=== PATIENT | female | born 1995 | race Caucasian/White ===

== ENCOUNTER 2016-11-16 08:12 | Inpatient (IN) | payer BC ==
[~2016-11-16] VITALS: Ht 157.5 cm; Wt 111.7 kg
[2016-11-16] MEDS ORDERED: FER325 PO (08:49)
[2016-11-16] MEDS ORDERED: PRENAT PO (08:49)
[2016-11-16 08:50] VITALS: BP 116/68; PULSE 80; RESP 18; Ht 157.5 cm; Wt 111.7 kg
--- NOTE | 2016-11-16 09:53 | RADRPT ---
PROCEDURE: US OB biophysical profile. CLINICAL INDICATION: decreased movements, contractions TECHNIQUE: Multiple sonographic images of the pelvis were obtained. The images were reviewed on a PACS workstation. COMPARISON: No prior studies are available for comparison. FINDINGS: There is a single viable intrauterine gestation. Cardiac activity is present with 127 beats per min [place]. There is a vertex presentation. The placenta is anterior. There is no evidence of placental abruption. There is a decreased amount of amniotic fluid with an DEBRA = 4.7 cm. Biophysical profile: movement 2/2 tone 2/2. breathing 2/2 DEBRA 0/2 Total 09/11 RPTAT: AA . IMPRESSION: Abnormal biophysical profile. Oligohydramnios. . .Patrick Lawrence MD, Date Time Electronically viewed and signed by .Patrick Lawrence MD, on 11/16/2016 09:53 .S/
--- NOTE | 2016-11-16 10:32 | TRIAGE ---
OB Triage Datetime Report Generated by CPN: 11/16/2016 10:32 Datetime: 11/16/2016 09:48 Vaginal Exam Dilatation (cms): 2.5 Effacement (%): 60 Station: -3 Exam By: pankaj Vaginal Bleeding: Normal Show Nitrazine: Negative Cervix, Consistency: Soft Cervix, Position: Posterior Datetime: 11/16/2016 08:47 Assessment Type: Triage Maternal Assessment Level of Consciousness: Fully Conscious DTR's/Clonus: DTRs 2+; No Clonus Headache: Denies Blurred Vision: No Respiratory Effort: Unlabored; Regular Rhythm; Equal Expansion Breath Sounds, Left: Clear and Equal Breath Sounds, Right: Clear and Equal Nausea/Vomiting: Denies RUQ Epigastric Pain: Denies Lower Extremities Edema: None Degree: None Upper Extremities Edema: None Degree: None Facial Edema: None Fall Risk Assessment History of Falling: (0) No Secondary Diagnosis: (0) No Ambulatory Aid: (0) Bedrest/Nurse Assist IV Therapy: (0) No Gait: (0) Normal/Bedrest/Immobile Mental Status: (0) Oriented to Own Ability Fall Score: 0 Fall Risk Score Definition: No Risk: No action required Datetime: 11/16/2016 08:42 Time of Arrival: 11/16/2016 08:07 EGA: 40.0 Arrived By: Ambulatory Arrived From: Home Chief Complaint: C/O POSSIBLE SROM Movement: Present Contractions: Irregular Time Contractions Began: 11/16/2016 07:30 Rupture of Membranes: Unsure Vaginal Bleeding: None Vaginal Discharge: Present Recent Sexual Intercouse: Denies Abdominal Trauma: Not Applicable Patient Complaints: Contractions; Cramping; Back Pain Time Provider Notified: 11/16/2016 09:00 Provider Notified: [email or web address] Datetime: 11/16/2016 08:41 Labor Evaluation Monitor Mode: External Heart Rate Monitor Mode: External US
[2016-11-16] MEDS ORDERED: LACTATED RINGER'S 1,000 ML IV PRN (13:22)
[2016-11-16] MEDS ORDERED: OXYTOCIN 30 UNITS/LR 500 ML IV PRN (13:30)
[2016-11-16] MEDS ORDERED: METHYLERGONOVINE 0.2 MG INJ IM PRN (13:30)
[2016-11-16] MEDS ORDERED: IBUPROFEN 600 MG TAB PO PRN (13:30)
[2016-11-16] MEDS ORDERED: AMPICILLIN 2 GM/NS (PMX) 100 ML IV ONE (13:30)
[2016-11-16] MEDS ORDERED: CARBOPROST 250 MCG INJ IM PRN (13:30)
[2016-11-16] MEDS ORDERED: LIDOCAINE 1% (MPF) 30 ML INJ INJ PRN (13:30)
[2016-11-16] MEDS ORDERED: OXYTOCIN 30 UNITS/LR 500 ML IV SCH ×3 (13:30)
[2016-11-16] MEDS ORDERED: MISOPROSTOL 200 MCG TAB PR PRN (13:30)
[2016-11-16] MEDS: LACTATED RINGER'S 1,000 ML IV SCH ×2 (13:39→22:05)
[2016-11-16 14:18] LABS: BASOPHILS % 0.4 % (0.0-2.0); EOSINOPHILS # 0.1 10^3/ul (0.0-0.5); EOSINOPHILS % 0.5 % (0.0-7.0); HEMATOCRIT 36.1 % (37.0-47.0); HEMOGLOBIN 11.7 g/dl (12.0-16.0); LYMPHOCYTES # 1.4 10^3/ul (0.8-2.9); LYMPHOCYTES % 12.6 % (15.0-51.0); MEAN CORPUSCULAR HEMOGLOBIN 26.7 pg (29.0-33.0); MEAN CORPUSCULAR HGB CONC 32.4 g/dl (32.0-37.0); MEAN CORPUSCULAR VOLUME 82.4 fl (82.0-101.0); MEAN PLATELET VOLUME 12.4 fl (7.4-10.4); MONOCYTE # 0.6 10^3/ul (0.3-0.9); MONOCYTES % 5.9 % (0.0-11.0); NEUTROPHIL # 8.6 10^3/ul (1.6-7.5); PLATELET COUNT 143 10^3/UL (140-415); RED BLOOD COUNT 4.38 10^6/ul (4.20-5.40); WHITE BLOOD COUNT 10.7 10^3/ul (4.8-10.8)
[2016-11-16 14:32] LABS: INR 0.93; PROTIME 12.5 Sec (12.2-14.2)
[2016-11-16 14:33] LABS: PARTIAL THROMBOPLASTIN TIME 25.8 Sec (25.0-35.0)
--- NOTE | 2016-11-16 16:04 | HP ---
Date/Time of Note Date/Time of Note DATE: 11/16/16 TIME: 15:56 OB - History Hx of Present Free Text/Dictation 21 years old female EDC November 16, 2016 admitted to the hospital reporting premature rupture of membranes at 730 this morning ,mild contraction. This patient has been under the care of the [facility] and her is not complicated with gestational diabetes - induced hypertension Estimated Due Date: Nov 16, 2016 : 1 Para: 0 Care: Good Care Ultrasounds: Normal mid trimester US Obstetrical Complications: None Medical Complications: None Past Family/Social History * Past Medical, Surgical, Family and Obstetric Histories reviewed from chart. Rubella: immune RPR/VDRL: Negative GBS Status: Negative HBsAG: Negative OB Admission Exam Vital Signs Vital Signs Vital Signs Date Time Temp Pulse Resp B/P Pulse Ox O2 Delivery O2 Flow Rate FiO2 11/16/16 08:50 98.5 80 18 116/68 98 Room Air Physical Exam HEENT: WNL Heart: Rhythm Normal Lungs: Clear, Equal Abdomen: WNL Extremities: Normal Reflexes: Normal Cervical Dilatation: 3cm Effacement: Other (60% effacement vertex at -3 station) Station: -3 Membranes: Ruptured Amniotic Fluid: Clear Heart Rate: 130's Accelerations: Accelerations Present Decelerations: No Decelerations Varibility: Moderate Contractions on Admission: >10 Minutes Apart Intensity: Mild Last 72 hours Lab Results CBC & BMP 11/16/16 13:38 OB Assessment/Plan Reason for admission: other (Labor augmentation with Pitocin IV infusion, required coverage with antibiotic started on ampicillin 2 g every 6 hours) Plan: Other (Labor augmentation) EULA SOTELO MD Nov 16, 2016 16:04
[2016-11-16 16:21] LABS: CANNABINOIDS Negative (NEGATIVE)
[2016-11-16 16:22] LABS: BARBITURATES Negative (NEGATIVE); BENZODIAZEPINES Negative (NEGATIVE); COCAINE Negative (NEGATIVE); OPIATES Negative (NEGATIVE)
[2016-11-16] MEDS: AMPICILLIN 1 GM/NS (PMX) 50 ML IV SCH ×2 (17:51→22:05)
[2016-11-16] MEDS: BUTORPHANOL 2 MG INJ IV PRN ×2 (20:06→23:50)
[2016-11-17] MEDS: AMPICILLIN 1 GM/NS (PMX) 50 ML IV SCH ×6 (02:19→22:07)
[2016-11-17] MEDS ORDERED: FENTAnyl 2MCG/ML-ROPIV 0.2% 100 ML ONE (06:04)
[2016-11-17] MEDS: LACTATED RINGER'S 1,000 ML IV SCH ×3 (06:14→23:57)
[2016-11-17] MEDS ORDERED: FENTAnyl 2MCG/ML-ROPIV 0.2% 100 ML BAG EPI SCH (06:30)
[2016-11-17] MEDS ORDERED: NALOXONE (0.4 MG/ML) INJ IV PRN (06:30)
--- NOTE | 2016-11-17 11:26 | RADRPT ---
PROCEDURE: US OB. CLINICAL INDICATION: Size and dates TECHNIQUE: Multiple sonographic images of the pelvis were obtained. Transabdominal imaging only w as performed. The images were reviewed on a PACS workstation. COMPARISON: No prior studies are available for comparison. FINDINGS: There is a single live intrauterine gestation. Cardiac activity is present with 137 beats per minut e. position is cephalic. Measurements were made in order to determine age. The results are as follows: BPD = 8.34 cm HC = 31.17 cm AC = 31.59 cm FL = 6.43 cm. Estimated gestational age of approximately 34 weeks 2 days. The estimated date of delivery is 12/27/2016. The EFW = 2478 g, less than 3rd %ile. The placenta is anterior. There is no evidence for an abruption or placenta previa. There are no adnexal masses. IMPRESSION: 1. Single live intrauterine gestation of approximately 34 weeks 2 days, by ultrasound criteria. 2. The estimated date of delivery is 12/27/2016. 3. The estimated weight is 2478 g, less than 3rd %ile. RPTAT: HH .Shivani Mcclendon MD, Date Time Electronically viewed and signed by .Shivani Mcclendon MD, on 11/17/2016 11:26 .G/
[2016-11-17] MEDS ORDERED: MINERAL OIL LIGHT 10 ML VIAL TOP ONE (15:00)
--- NOTE | 2016-11-17 17:00 | QN ---
Documentation Comment Repeat examination at 1655 Cervix 9 cm dilated vertex with moderate Size caput at -1 -2 station heart rate category 1 contraction 3-5 minutes EULA SOTELO MD Nov 17, 2016 17:00
[2016-11-18] VITALS (11 sets, daily range): BP systolic 107–137; BP diastolic 66–82; PULSE 78–103; RESP 18–20
[2016-11-18] MEDS: AMPICILLIN 1 GM/NS (PMX) 50 ML IV SCH (02:00)
[2016-11-18] MEDS ORDERED: FENTAnyl 50 MCG/ML VIAL ONE (02:06)
[2016-11-18] MEDS ORDERED: CEFAZOLIN 1 GM INJ ONE (02:20)
[2016-11-18] MEDS ORDERED: SODIUM BICARBONATE (IV ADD) 50 ML ONE (02:20)
[2016-11-18] MEDS ORDERED: ONDANSETRON 4 MG INJ ONE (02:21)
[2016-11-18] MEDS ORDERED: LIDOCAINE 2%/EPI 30 ML INJ ONE (02:22)
[2016-11-18] MEDS ORDERED: morphine SULFATE/PF (10 MG/10 ML) INJ ONE (02:22)
[2016-11-18] MEDS ORDERED: NALOXONE (0.4 MG/ML) INJ IV PRN (03:00)
[2016-11-18] MEDS ORDERED: DIPHENHYDRAMINE 50 MG INJ IV PRN (03:00)
[2016-11-18] MEDS ORDERED: HYDROmorphONE 1 MG/ML SYG IV PRN ×2 (03:00)
[2016-11-18] MEDS ORDERED: ZOLPIDEM 5 MG TAB PO PRN (03:00)
[2016-11-18] MEDS ORDERED: ONDANSETRON 4 MG INJ IV PRN (03:00)
[2016-11-18] MEDS: KETOROLAC 30 MG INJ IV PRN ×4 (05:23→23:58)
--- NOTE | 2016-11-18 05:36 | OPR ---
Operative Report Planned Procedure Free Text/Dictation 21 y/o G1 with SIUP at 40 2/7 weeks with arrest of descent Procedure date Nov 18, 2016 Procedure(s) primary C/S Performed by: KALEIGH YUEN Assisting provider: SUSANNE CLINTON MD Anesthesiologist: PATRICK LUCERO Pre-procedure diagnosis 21 y/o G1 with SIUP at 40 2/7 weeks with arrest of descent Anesthesia Type: epidural Procedure Description Under satisfactory epidural anesthesia, the patient was prepped and draped and placed in a supine position, tilted to the left. Pfannenstiel incision was made , carried through the subcutaneous tissue. Bleeders brought under control with electrocautery. Fascia incised to the length of the incision. Rectus muscles from the fascia, divided midline. Peritoneum exposed, entered through a transverse incision. Exploration of abdomen revealed gravid uterus. Bladder flap was developed. Transverse incision was made in the lower segment of the uterus. Amniotic sac was ruptured, clear. Nasal oropharyngeal suction was performed. The baby was handed to the team for immediate attention. The placenta was delivered manually intact. Uterine cavity was cleaned with wet sponge and drainage established. Uterus closed in 2 layers using [0-monocryl] in continuous fashion. Peritoneal cavity irrigated with warm saline. Sponge, needle and instrument count reported to be correct. Abdominal peritoneum closed with [2-0 vicryl] continuously. Rectus muscle approximated with [3-0 vicryl]. Fascia closed with [0-vicryl], Subcutaneous approximated with 3-0 vicryl and skin closed with 4-0 monocryl. Estimated blood loss [600]mL. Urine bag contained [150]mL of urine Post-Procedure Post-procedure diagnosis 21 y/o G1 with SIUP at 40 2/7 weeks with arrest of descent Findings: Live Baby [male], Apgars [7] and [9], weight [7 lbs 10 oz+ 2470 ggram], [ cephalic] presentation [3v]cord. Specimen removed: No Complications: None Physician Certification I, the undersigned physician, hereby certify that I have discussed the procedure described in this consent form with this patient (or the patient's legal guest service representative), including: * The risk and benefits of the procedure; * Any adverse reactions that may reasonably be expected to occur; * Any alternative efficacious methods of treatment which may be medically viable ; * The potential problems that may occur during recuperation; * Potential for blood transfusion and associated risks/benefits; and * Any research or economic interest I may have regarding this treatment. I further certify that the patient/legally responsible person was encouraged to ask question and that all questions were answered. KALEIGH YUEN Nov 18, 2016 05:36
[2016-11-18] MEDS ORDERED: DEXTROSE 5%-LR 1,000 ML IV SCH (05:37)
[2016-11-18] MEDS ORDERED: METHYLERGONOVINE 0.2 MG INJ IM PRN (06:00)
[2016-11-18] MEDS ORDERED: OXYTOCIN 30 UNITS/LR 500 ML IV PRN (06:00)
[2016-11-18] MEDS ORDERED: OXYCODONE/ACETAMINOPHEN (5/325) TAB PO SCH (06:00)
[2016-11-18] MEDS ORDERED: METHYLERGONOVINE 0.2 MG TAB PO PRN (06:00)
[2016-11-18] MEDS ORDERED: CARBOPROST 250 MCG INJ IM PRN (06:00)
[2016-11-18] MEDS ORDERED: MISOPROSTOL 200 MCG TAB PR PRN (06:00)
[2016-11-18] MEDS ORDERED: LANOLIN 7 GM TUBE TOP PRN (06:00)
[2016-11-18] MEDS: OXYTOCIN 30 UNITS/LR 500 ML IV SCH ×2 (07:22→09:37)
[2016-11-18] MEDS: SENNA/DOCUSATE NA (8.6MG/50MG) TAB PO SCH ×2 (08:40→21:47)
[2016-11-18] MEDS ORDERED: OXYCODONE/ACETAMINOPHEN (5/325) TAB PO PRN (14:00)
[2016-11-18] MEDS: LACTATED RINGER'S 1,000 ML IV SCH ×2 (14:00→21:48)
[2016-11-19 04:10] VITALS: BP 117/66; PULSE 87; RESP 19
[2016-11-19] MEDS: IBUPROFEN 800 MG TAB PO SCH ×3 (05:50→21:49)
[2016-11-19] MEDS: LACTATED RINGER'S 1,000 ML IV SCH ×2 (06:00→14:00)
[2016-11-19 08:00] VITALS: BP 130/80; PULSE 90; RESP 18
[2016-11-19 10:28] LABS: HEMATOCRIT 29.7 % (37.0-47.0); HEMOGLOBIN 9.7 g/dl (12.0-16.0); MEAN CORPUSCULAR HEMOGLOBIN 27.9 pg (29.0-33.0); MEAN CORPUSCULAR HGB CONC 32.7 g/dl (32.0-37.0); MEAN CORPUSCULAR VOLUME 85.3 fl (82.0-101.0); MEAN PLATELET VOLUME 11.4 fl (7.4-10.4); PLATELET COUNT 120 10^3/UL (140-415); RED BLOOD COUNT 3.48 10^6/ul (4.20-5.40); RED CELL DISTRIBUTION WIDTH 14.5 % (11.5-14.5); WHITE BLOOD COUNT 13.4 10^3/ul (4.8-10.8)
[2016-11-19 10:34] LABS: POSITIVE DIFF @See below
[2016-11-19 11:04] LABS: ANISOCYTOSIS 2+ (0-0); GIANT THROMBO% (M) 1 % (0-0); MONOCYTES % (M) 4 % (0-11); PLATELET ESTIMATE NORMAL
[2016-11-19] MEDS: OXYCODONE/ACETAMINOPHEN (5/325) TAB PO PRN (12:36)
[2016-11-19] MEDS: SENNA/DOCUSATE NA (8.6MG/50MG) TAB PO SCH ×2 (12:36→21:49)
[2016-11-19 16:29] VITALS: BP 130/81; PULSE 88; RESP 20
--- NOTE | 2016-11-19 18:40 | PN ---
Date/Time of Note Date/Time of Note DATE: 11/19/16 TIME: 18:38 OB Subjective Subjective Subjective Post day 1 Afebrile Vital signs are stable Abdomen soft, incision dry, bowel sounds present, lochia moderate, extremity normal, ambulation encouraged Laboratory Tests Test 11/19/16 10:01 White Blood Count 13.410^3/ul Red Blood Count 3.4810^6/ul Hemoglobin 9.7g/dl Hematocrit 29.7% Mean Corpuscular Volume 85.3fl Mean Corpuscular Hemoglobin 27.9pg Mean Corpuscular Hemoglobin Concent 32.7g/dl Red Cell Distribution Width 14.5% Platelet Count 03140^3/UL Mean Platelet Volume 11.4fl Neutrophils % % Segmented Neutrophils % (Manual) 87% Lymphocytes % % Lymphocytes % (Manual) 9% Monocytes % % Monocytes % (Manual) 4% Eosinophils % % Basophils % % Nucleated Red Blood Cells % 0.0/100WBC Neutrophils # (Manual) 10^3/ul Absolute Lymphocytes (Manual) 1.210^3/ul Lymphocytes # 10^3/ul Monocytes # 10^3/ul Absolute Monocytes (Manual) 0.510^3/ul Eosinophils # 10^3/ul Basophils # 10^3/ul Nucleated Red Blood Cells # 10^3/ul Thrombocytosis 1% Platelet Estimate NORMAL Anisocytosis 2+ Current Medications Medications (Trade) Dose Ordered Sig/Max Route PRN Reason Start Time Stop Time Status Last Admin Dose Admin Lactated Ringer's 1,000 ml @ 125 mls/hr Q8H IV 11/16/16 13:22 11/18/16 07:07 DC 11/17/16 23:57 Ampicillin 100 ml @ 100 mls/hr ONCE ONCE IV 11/16/16 13:30 11/16/16 14:29 DC 11/16/16 13:47 Ampicillin 50 ml @ 100 mls/hr Q4H IV 11/16/16 15:00 11/17/16 08:42 DC 11/17/16 06:14 Oxytocin/Lactated Ringer's 500 ml @ 0 mls/hr TITRATE IV 11/16/16 13:30 11/18/16 07:07 DC 11/16/16 13:48 Butorphanol Tartrate (Stadol) 2 mg Q2H PRN IV PAIN 11/16/16 13:30 11/18/16 07:07 DC 11/16/16 23:50 Lidocaine 30 ml 30 ml ONCE PRN INJ EPISIOTOMY/TEARING 11/16/16 13:30 11/18/16 07:07 DC Oxytocin/Lactated Ringer's 500 ml @ 125 mls/hr ONCE -MAY REPEAT X1 IV 11/16/16 13:30 11/18/16 07:07 DC Oxytocin/Lactated Ringer's 500 ml @ 125 mls/hr ONCE IV 11/16/16 13:30 11/18/16 05:46 DC Ibuprofen 600 mg 600 mg ONCE PRN PO Mild Pain (Pain Score 1-3) 11/16/16 13:30 11/18/16 07:08 DC Lactated Ringer's 1,000 ml @ 2,000 mls/hr Q30M PRN IV PRE-EPIDURAL BOLUS 11/16/16 13:22 11/18/16 07:08 DC Oxytocin/Lactated Ringer's 500 ml @ 0 mls/hr ONCE PRN IV For Hemorrhage Management 11/16/16 13:30 11/18/16 07:09 DC Methylergonovine Maleate (Methergine) 0.2 mg ONCE PRN IM VAGINAL BLEEDING 11/16/16 13:30 11/18/16 05:46 DC Carboprost Tromethamine (Hemabate) 250 mcg ONCE PRN IM VAGINAL BLEEDING 11/16/16 13:30 11/18/16 05:46 DC Misoprostol 1000 mcg 1,000 mcg ONCE PRN [place] VAGINAL BLEEDING 11/16/16 13:30 11/18/16 05:46 DC Fentanyl/ Ropivacaine 100 ml @ STK-MED ONCE .ROUTE 11/17/16 06:04 11/17/16 06:05 DC Naloxone HCl (Narcan) 0.2 mg Q2M PRN IV FOR RESP RATE 8 OR LESS 11/17/16 06:30 11/18/16 07:09 DC Fentanyl/ Ropivacaine 100 ml 100 ml EPIDURAL (PCEA) EPI 11/17/16 06:30 11/18/16 07:09 DC 11/17/16 15:43 Ampicillin (Ampicillin 1 Gm/ NS (Pmx)) 50 ml @ 100 mls/hr Q4H IV 11/17/16 10:00 11/18/16 07:08 DC 11/17/16 22:07 Mineral Oil (Muri-Lube) ONCE ONCE TOP 11/17/16 15:00 11/17/16 15:01 DC Fentanyl 100 mcg 100 mcg STK-MED ONCE .ROUTE 11/18/16 02:06 11/18/16 02:07 DC Sodium Bicarbonate (Na Bicarb) 50 ml @ ud STK-MED ONCE .ROUTE 11/18/16 02:20 11/18/16 02:21 DC Cefazolin Sodium (Ancef) 1 gm STK-MED ONCE .ROUTE 11/18/16 02:20 11/18/16 02:21 DC Ondansetron HCl (Zofran Inj) 4 mg STK-MED ONCE .ROUTE 11/18/16 02:21 11/18/16 02:22 DC Lidocaine/ Epinephrine (Xylocaine 2%/ Epi) 30 ml STK-MED ONCE .ROUTE 11/18/16 02:22 11/18/16 02:23 DC Morphine Sulfate (Duramorph) 10 mg STK-MED ONCE .ROUTE 11/18/16 02:22 11/18/16 02:23 DC Naloxone HCl (Narcan) 0.1 mg Q2M PRN IV FOR RESP RATE 8 OR LESS 11/18/16 03:00 11/19/16 02:59 DC Ketorolac Tromethamine (Toradol) 30 mg Q6H PRN IV PAIN 11/18/16 03:00 11/19/16 02:59 DC 11/18/16 23:58 Hydromorphone HCl (Dilaudid) 0.2 mg Q3H PRN IV PAIN LEVEL 1-5 11/18/16 03:00 11/19/16 02:59 DC Hydromorphone HCl (Dilaudid) 0.4 mg Q3H PRN IV PAIN LEVEL 6-10 11/18/16 03:00 11/19/16 02:59 DC Diphenhydramine HCl (Benadryl) 25 mg Q6H PRN IV ITCHING 11/18/16 03:00 11/19/16 02:59 DC Ondansetron HCl (Zofran Inj) 4 mg Q6H PRN IV NAUSEA AND/OR VOMITING 11/18/16 03:00 11/19/16 02:59 DC Zolpidem Tartrate (Ambien) 5 mg HS MAY REPEAT X 1 PRN PO INSOMNIA 11/18/16 03:00 11/19/16 02:59 DC Miscellaneous Information Duramorph: 4 mg Epidu... GIVEN XX 11/18/16 03:00 11/18/16 14:10 DC Dextrose/Lactated Ringer's 1,000 ml @ 125 mls/hr Q8H IV 11/18/16 05:37 11/18/16 07:08 DC Oxytocin/Lactated Ringer's 500 ml @ 125 mls/hr Q4H IV 11/18/16 05:37 11/18/16 13:36 DC 11/18/16 07:22 Methylergonovine Maleate (Methergine) 0.2 mg Q6H PRN PO VAGINAL BLEEDING 11/18/16 06:00 Simethicone (Mylicon) 160 mg Q8H PRN PO DISTENSION/GAS/BLOATING 11/18/16 06:00 Senna/Docusate Sodium (Senokot-S) 1 tab BID PO 11/18/16 09:00 11/19/16 12:36 Lanolin (Vie-B-Psuqle) 1 applic BEDSIDE MEDICATION PRN TOP BEDSIDE FOR MISHA TO NIPPLES 11/18/16 06:00 Diphtheria/ Tetanus/Acell Pertussis (Adacel) 0.5 ml ONCE ONCE IM* 11/21/16 09:00 11/21/16 09:01 Measles/Mumps/ Rubella Vaccine Live 0.5 ml 0.5 ml ONCE ONCE SC* 11/21/16 09:00 11/21/16 09:01 Oxytocin/Lactated Ringer's 500 ml @ 0 mls/hr ONCE PRN IV For Hemorrhage Management 11/18/16 06:00 11/18/16 06:00 DC Methylergonovine Maleate (Methergine) 0.2 mg ONCE PRN IM VAGINAL BLEEDING 11/18/16 06:00 11/18/16 07:08 DC Carboprost Tromethamine (Hemabate) 250 mcg ONCE PRN IM VAGINAL BLEEDING 11/18/16 06:00 11/18/16 07:08 DC Misoprostol (Cytotec) 1,000 mcg ONCE PRN [place] VAGINAL BLEEDING 11/18/16 06:00 Ibuprofen (Motrin) 800 mg Q8 PO 11/19/16 06:00 11/19/16 14:16 Oxycodone/ Acetaminophen (Percocet (5/ 325)) 1 tab Q8H PO 11/18/16 06:00 11/18/16 08:06 DC Oxycodone/ Acetaminophen (Percocet (5/ 325)) 1 tab Q4H PRN PO PAIN 11/18/16 06:00 11/19/16 12:36 Oxycodone/ Acetaminophen 1 tab 1 tab Q8H PRN PO PAIN 11/18/16 14:00 Lactated Ringer's (Lr) 1,000 ml @ 125 mls/hr Q8H IV 11/18/16 14:00 11/19/16 16:26 DC 11/18/16 21:48 EULA SOTELO MD Nov 19, 2016 18:39
[2016-11-19 19:40] VITALS: BP 111/58; PULSE 81; RESP 19
[2016-11-20 03:50] VITALS: BP 114/60; PULSE 79; RESP 19
[2016-11-20] MEDS: IBUPROFEN 800 MG TAB PO SCH ×3 (05:41→22:15)
[2016-11-20 07:45] VITALS: BP 128/75; PULSE 100; RESP 20
[2016-11-20] MEDS: SENNA/DOCUSATE NA (8.6MG/50MG) TAB PO SCH ×2 (08:36→20:47)
[2016-11-20] MEDS: OXYCODONE/ACETAMINOPHEN (5/325) TAB PO PRN ×3 (08:36→17:47)
--- NOTE | 2016-11-20 10:47 | PN ---
Date/Time of Note Date/Time of Note DATE: 11/20/16 TIME: 10:45 OB Subjective Subjective Subjective November 20, 2016 Post 2 Hospital visit Doing Well Afebrile Ambulatory Chest Clear Breasts are soft , Nipples are intact Abdomen is soft Fundus is firm Moderate amount of lochia Incision is clean ,No evidence of infection No calf tenderness No ankle edema Current Medications Medications (Trade) Dose Ordered Sig/Max Route PRN Reason Start Time Stop Time Status Last Admin Dose Admin Lactated Ringer's 1,000 ml @ 125 mls/hr Q8H IV 11/16/16 13:22 11/18/16 07:07 DC 11/17/16 23:57 Ampicillin 100 ml @ 100 mls/hr ONCE ONCE IV 11/16/16 13:30 11/16/16 14:29 DC 11/16/16 13:47 Ampicillin 50 ml @ 100 mls/hr Q4H IV 11/16/16 15:00 11/17/16 08:42 DC 11/17/16 06:14 Oxytocin/Lactated Ringer's 500 ml @ 0 mls/hr TITRATE IV 11/16/16 13:30 11/18/16 07:07 DC 11/16/16 13:48 Butorphanol Tartrate (Stadol) 2 mg Q2H PRN IV PAIN 11/16/16 13:30 11/18/16 07:07 DC 11/16/16 23:50 Lidocaine 30 ml 30 ml ONCE PRN INJ EPISIOTOMY/TEARING 11/16/16 13:30 11/18/16 07:07 DC Oxytocin/Lactated Ringer's 500 ml @ 125 mls/hr ONCE -MAY REPEAT X1 IV 11/16/16 13:30 11/18/16 07:07 DC Oxytocin/Lactated Ringer's 500 ml @ 125 mls/hr ONCE IV 11/16/16 13:30 11/18/16 05:46 DC Ibuprofen 600 mg 600 mg ONCE PRN PO Mild Pain (Pain Score 1-3) 11/16/16 13:30 11/18/16 07:08 DC Lactated Ringer's 1,000 ml @ 2,000 mls/hr Q30M PRN IV PRE-EPIDURAL BOLUS 11/16/16 13:22 11/18/16 07:08 DC Oxytocin/Lactated Ringer's 500 ml @ 0 mls/hr ONCE PRN IV For Hemorrhage Management 11/16/16 13:30 11/18/16 07:09 DC Methylergonovine Maleate (Methergine) 0.2 mg ONCE PRN IM VAGINAL BLEEDING 11/16/16 13:30 11/18/16 05:46 DC Carboprost Tromethamine (Hemabate) 250 mcg ONCE PRN IM VAGINAL BLEEDING 11/16/16 13:30 11/18/16 05:46 DC Misoprostol 1000 mcg 1,000 mcg ONCE PRN [place] VAGINAL BLEEDING 11/16/16 13:30 11/18/16 05:46 DC Fentanyl/ Ropivacaine 100 ml @ ud STK-MED ONCE .ROUTE 11/17/16 06:04 11/17/16 06:05 DC Naloxone HCl (Narcan) 0.2 mg Q2M PRN IV FOR RESP RATE 8 OR LESS 11/17/16 06:30 11/18/16 07:09 DC Fentanyl/ Ropivacaine 100 ml 100 ml EPIDURAL (PCEA) EPI 11/17/16 06:30 11/18/16 07:09 DC 11/17/16 15:43 Ampicillin (Ampicillin 1 Gm/ NS (Pmx)) 50 ml @ 100 mls/hr Q4H IV 11/17/16 10:00 11/18/16 07:08 DC 11/17/16 22:07 Mineral Oil (Muri-Lube) ONCE ONCE TOP 11/17/16 15:00 11/17/16 15:01 DC Fentanyl 100 mcg 100 mcg STK-MED ONCE .ROUTE 11/18/16 02:06 11/18/16 02:07 DC Sodium Bicarbonate (Na Bicarb) 50 ml @ ud STK-MED ONCE .ROUTE 11/18/16 02:20 11/18/16 02:21 DC Cefazolin Sodium (Ancef) 1 gm STK-MED ONCE .ROUTE 11/18/16 02:20 11/18/16 02:21 DC Ondansetron HCl (Zofran Inj) 4 mg STK-MED ONCE .ROUTE 11/18/16 02:21 11/18/16 02:22 DC Lidocaine/ Epinephrine (Xylocaine 2%/ Epi) 30 ml STK-MED ONCE .ROUTE 11/18/16 02:22 11/18/16 02:23 DC Morphine Sulfate (Duramorph) 10 mg STK-MED ONCE .ROUTE 11/18/16 02:22 11/18/16 02:23 DC Naloxone HCl (Narcan) 0.1 mg Q2M PRN IV FOR RESP RATE 8 OR LESS 11/18/16 03:00 11/19/16 02:59 DC Ketorolac Tromethamine (Toradol) 30 mg Q6H PRN IV PAIN 11/18/16 03:00 11/19/16 02:59 DC 11/18/16 23:58 Hydromorphone HCl (Dilaudid) 0.2 mg Q3H PRN IV PAIN LEVEL 1-5 11/18/16 03:00 11/19/16 02:59 DC Hydromorphone HCl (Dilaudid) 0.4 mg Q3H PRN IV PAIN LEVEL 6-10 11/18/16 03:00 11/19/16 02:59 DC Diphenhydramine HCl (Benadryl) 25 mg Q6H PRN IV ITCHING 11/18/16 03:00 11/19/16 02:59 DC Ondansetron HCl (Zofran Inj) 4 mg Q6H PRN IV NAUSEA AND/OR VOMITING 11/18/16 03:00 11/19/16 02:59 DC Zolpidem Tartrate (Ambien) 5 mg HS MAY REPEAT X 1 PRN PO INSOMNIA 11/18/16 03:00 11/19/16 02:59 DC Miscellaneous Information Duramorph: 4 mg Epidu... GIVEN XX 11/18/16 03:00 11/18/16 14:10 DC Dextrose/Lactated Ringer's 1,000 ml @ 125 mls/hr Q8H IV 11/18/16 05:37 11/18/16 07:08 DC Oxytocin/Lactated Ringer's 500 ml @ 125 mls/hr Q4H IV 11/18/16 05:37 11/18/16 13:36 DC 11/18/16 07:22 Methylergonovine Maleate (Methergine) 0.2 mg Q6H PRN PO VAGINAL BLEEDING 11/18/16 06:00 Simethicone (Mylicon) 160 mg Q8H PRN PO DISTENSION/GAS/BLOATING 11/18/16 06:00 Senna/Docusate Sodium (Senokot-S) 1 tab BID PO 11/18/16 09:00 11/20/16 08:36 Lanolin (Hxv-T-Txnmav) 1 applic BEDSIDE MEDICATION PRN TOP BEDSIDE FOR MISHA TO NIPPLES 11/18/16 06:00 Diphtheria/ Tetanus/Acell Pertussis (Adacel) 0.5 ml ONCE ONCE IM* 11/21/16 09:00 11/21/16 09:01 Measles/Mumps/ Rubella Vaccine Live 0.5 ml 0.5 ml ONCE ONCE SC* 11/21/16 09:00 11/21/16 09:01 Oxytocin/Lactated Ringer's 500 ml @ 0 mls/hr ONCE PRN IV For Hemorrhage Management 11/18/16 06:00 11/18/16 06:00 DC Methylergonovine Maleate (Methergine) 0.2 mg ONCE PRN IM VAGINAL BLEEDING 11/18/16 06:00 11/18/16 07:08 DC Carboprost Tromethamine (Hemabate) 250 mcg ONCE PRN IM VAGINAL BLEEDING 11/18/16 06:00 11/18/16 07:08 DC Misoprostol (Cytotec) 1,000 mcg ONCE PRN [place] VAGINAL BLEEDING 11/18/16 06:00 Ibuprofen (Motrin) 800 mg Q8 PO 11/19/16 06:00 11/20/16 05:41 Oxycodone/ Acetaminophen (Percocet (5/ 325)) 1 tab Q8H PO 11/18/16 06:00 11/18/16 08:06 DC Oxycodone/ Acetaminophen (Percocet (5/ 325)) 1 tab Q4H PRN PO PAIN 11/18/16 06:00 11/20/16 08:36 Oxycodone/ Acetaminophen 1 tab 1 tab Q8H PRN PO PAIN 11/18/16 14:00 Lactated Ringer's (Lr) 1,000 ml @ 125 mls/hr Q8H IV 11/18/16 14:00 11/19/16 16:26 DC 11/18/16 21:48 New born is doing well, Breast feeding ADITHYA KRAFT MD Nov 20, 2016 10:47
[2016-11-20 16:00] VITALS: BP 122/63; PULSE 100; RESP 20
[2016-11-20 20:45] VITALS: BP 136/80; PULSE 90; RESP 20
[2016-11-21] MEDS: OXYCODONE/ACETAMINOPHEN (5/325) TAB PO PRN ×4 (00:29→16:32)
[2016-11-21 04:25] VITALS: BP 126/69; PULSE 92; RESP 18
[2016-11-21] MEDS: IBUPROFEN 800 MG TAB PO SCH ×3 (05:39→21:15)
[2016-11-21 08:00] VITALS: BP 127/68; PULSE 118; RESP 20
[2016-11-21] MEDS: SENNA/DOCUSATE NA (8.6MG/50MG) TAB PO SCH ×3 (08:43→21:15)
[2016-11-21] MEDS ORDERED: DIPHTH/TET/ACEL PERTUSS (ADULT) 0.5 ML VIAL IM* ONE (09:00)
[2016-11-21] MEDS ORDERED: MEASLES,MUMPS,RUBELLA VACCINE INJ SC* ONE (09:00)
--- NOTE | 2016-11-21 10:06 | PD.PPDC ---
[facility] [facility] Discharge Instruction Condition Patient Condition: Good Diet Diet: Resume Regular Diet Activity/Restrictions Activity: Normal Activity May Shower Wound/Drain Care Instructions Wound/Drain Care Instructions: Remove Steri Strips in 1 week Follow-up Follow-up with Physician: 1 Provider Information: Post instructions given recommended to make appointment to be seen at the clinic in 1 week Return to clinic for FOAM CHARGER Instructions: Fever greater than 101 Chills Worsening abdominal pain Excessive Vaginal Bleeding More than 2 pads per hour Unable to tolerate diet OB Instructions: Breast Tenderness Depression Blurried Vision Headache Surgical Instructions: Incisional Drainage Incisional Redness EULA SOTELO MD Nov 21, 2016 10:06
--- NOTE | 2016-11-21 10:11 | DS ---
Date/Time of Note Date/Time of Note DATE: 11/21/16 TIME: 10:07 Discharge Summary Admission/Discharge Info Admit Date/Time Nov 16, 2016 at 10:00 Discharge Date/Time November 21, 2016 at 10 AM Discharge Diagnosis Post day 3 Patient Condition: Good Procedures Primary Hx of Present Illness Term post day 3 Hospital Course Satisfactory uneventful Home Meds Reported Medications Ferrous Sulfate* (Ferrous Sulfate*) 325 Mg Tabec, 325 MG PO DAILY, TAB 11/16/16 Multivit/Min/Fol Ac/Iron/Pren* ( S*) 1 Tab Tab, 1 TAB PO DAILY, TAB 11/16/16 Follow-up Plan Post instructions given recommended to make appointment to be seen at the clinic in 1 week Primary Care Provider Not On Staff Doctor Time spent on discharge: < 30 minutes EULA SOTELO MD Nov 21, 2016 10:11
[2016-11-21 16:10] VITALS: BP 143/84; PULSE 131; RESP 20
[2016-11-21 16:53] LABS: ABNORMAL IP MESSAGE 1; HEMATOCRIT 28.3 % (37.0-47.0); HEMOGLOBIN 9.1 g/dl (12.0-16.0); MEAN CORPUSCULAR HEMOGLOBIN 27.3 pg (29.0-33.0); MEAN CORPUSCULAR HGB CONC 32.2 g/dl (32.0-37.0); MEAN PLATELET VOLUME 10.3 fl (7.4-10.4); PLATELET COUNT 163 10^3/UL (140-415); RED BLOOD COUNT 3.33 10^6/ul (4.20-5.40); RED CELL DISTRIBUTION WIDTH 14.2 % (11.5-14.5); WHITE BLOOD COUNT 16.8 10^3/ul (4.8-10.8)
[2016-11-21 17:01] LABS: POSITIVE DIFF @See below
[2016-11-21 17:30] LABS: GIANT THROMBO% (M) 1 % (0-0); PLATELET ESTIMATE NORMAL
[2016-11-21] MEDS ORDERED: PIPER-TAZO 3.375 GM IV (PMX) 100 ML IVPB SCH (18:00)
--- NOTE | 2016-11-21 18:06 | QN ---
Documentation Comment Nurse informed patient has temperature 100.3 it went up to 101, I am on bedside of the patient, abdomen soft no induration around the incision site mild to moderate low back pain but no frequency urine or burning, patient denies chills headache or any other discomfort except generalized abdominal pain consistent with post symptoms, extremities normal orders urinalysis and culture blood culture for temperature over 1023 every 30 minute to follow with antibiotic therapy, pelvic and abdominal CT scan, chest x-ray requested Plan pending urine and blood culture result and imaging EULA SOTELO MD Nov 21, 2016 18:06
[2016-11-21 18:30] VITALS: BP 130/80; PULSE 131; RESP 20
[2016-11-21] MEDS: LACTATED RINGER'S 1,000 ML IV SCH (18:41)
--- NOTE | 2016-11-21 19:45 | RADRPT ---
PROCEDURE: XR Chest. CLINICAL INDICATION: Fever, R/O pneumonia TECHNIQUE: PA and Lateral views of the chest were obtained. COMPARISON: None. FINDINGS: There are low lung volumes with associated crowding of lung markings. The cardiomediastinal silhouette is within normal limits. No pneumothorax, pleural effusion, or consolidation is identified. The osseous structures, as visualized, are unremarkable. IMPRESSION: No evidence of acute cardiopulmonary process. Low lung volumes. RPTAT: QQ Physician Olga Date Time Electronically viewed and signed by Physician Olga on 11/21/2016 19:45 RC/
[2016-11-21 20:15] VITALS: BP 129/73; PULSE 137; RESP 20
--- NOTE | 2016-11-21 20:26 | RADRPT ---
PROCEDURE: CT abdomen and pelvis without contrast. CLINICAL INDICATION: Epigastric pain. section 11/18/2016. Clinical concern for obstruct ion or peritoneal collection TECHNIQUE: CT scan of the abdomen and pelvis without contrast was performed. Sagittal and coronal reformatted images were obtained from the axial source images. CTDI = 23.68 mGy; DLP = 1392.50 mGy- cm COMPARISON: None available. FINDINGS: Visualized lower thorax: Trace dependent bibasilar subsegmental atelectasis is present. There is n o evidence for pleural effusion. Liver, gallbladder, pancreas and spleen: The liver is normal and size, contour and attenuation. Th ere is no evidence for a liver mass or ductal dilatation. The gallbladder is unremarkable. No comm on bile duct abnormality is demonstrated. The pancreas is unremarkable. The spleen is top normal i n size. Adrenal glands and genitourinary system: The adrenal glands are normal bilaterally. The kidneys are normal and size, contour and attenuation with no evidence for masses, calculi or hydronephrosis. T he ureters are unremarkable. Some gas within the urinary bladder lumen suggest recent instrumentatio n, no urinary bladder wall thickening is present. Uterine enlargement is seen the size of the uteru s estimated at 18.8 x 10.7 x 9.4 cm. Hyperdense material within the endometrial cavity likely refle cts retained blood clots. Anterior and to the right of the uterine corpus is an oblong collection t hat has internal punctate foci of gas and fluid, findings concerning for acute inflammatory collecti on/abscess measuring approximately 4.6 x 10.7 x 3.6 cm (series 3 image 139, series 601 image 51). Gastrointestinal system: The stomach is normal in caliber with no abnormality of significance. The small bowel is normal in caliber with no ileus, obstruction or wall thickening. The appendix and s urrounding fat are within the limits of normal. The colon shows no evidence for wall thickening or acute abnormality. There is no evidence for colitis or diverticulitis. Peritoneum, retroperitoneum, lymph nodes and vessels: The abdominal aorta is normal in caliber. The re is no evidence for atherosclerotic calcification. The inferior vena cava is unremarkable. There is no evidence for adenopathy or mass. Perihepatic and perisplenic ascites is present with a mild to moderate amount of dependent pelvic ascites. There is some fluid in the presacral space. Strand ing of the pelvic fat is present. Osseous structures and musculoskeletal findings: There is no fracture, lytic or blastic lesion. St randing of the subcutaneous fat along the anterior abdominal wall is present with some gas in the re ctus abdominous sheath consistent with recent surgery as provided history. RPTAT:HJJR IMPRESSION: 1. Ovoid collection anterior to the mid uterine corpus is a and asymmetric to the right within the pelvis, the abnormality of measuring approximately 10.7 x 4.6 x 3.6 cm and concerning for a pelvic a bscess. Follow-up evaluation is recommended. 2. Uterine enlargement consistent with the recently gravid state with some blood clot suspected in the endometrial cavity. 3. Pelvic, perihepatic and perisplenic ascites. 4. Stranding of the pelvic fat with postoperative gas in the anterior abdominal wall consistent wit h recent surgery. Physician Keira Date Time Electronically viewed and signed by Physician Keira on 11/21/2016 20:26 /
[2016-11-21] MEDS: PIPER-TAZO 3.375 GM IV (PMX) 100 ML IVPB SCH (21:08)
[2016-11-22] VITALS (7 sets, daily range): BP systolic 117–137; BP diastolic 56–78; PULSE 107–124; RESP 17–20
[2016-11-22 00:59] LABS: ADD UMIC YES; UR ASCORBIC ACID NEGATIVE (NEGATIVE); UR BACTERIA FEW /HPF (NONE SEEN); UR BILIRUBIN (Dip) NEGATIVE (NEGATIVE); UR BLOOD (Dip) 3+ mg/dL (NEGATIVE); UR CLARITY CLOUDY (CLEAR); UR COLOR YELLOW (YELLOW); UR GLUCOSE (Dip) NEGATIVE (NEGATIVE); UR KETONES (Dip) NEGATIVE (NEGATIVE); UR LEUKOCYTE ESTERASE (Dip) 3+ Leu/ul (NEGATIVE); UR MUCUS FEW /HPF (NONE SEEN); UR NITRITE (Dip) NEGATIVE (NEGATIVE); UR RBC > 182 /HPF (0-5); UR SPECIFIC GRAVITY (Dip) 1.012 (1.003-1.030); UR SQUAMOUS EPITHELIAL CELL FEW /HPF (FEW); UR TOTAL PROTEIN (Dip) 1+ mg/dl (NEGATIVE); UR TRANSITIONAL EPI CELL FEW /HPF (NONE SEEN); UR UROBILINOGEN (Dip) NEGATIVE (NEGATIVE); UR WBC CLUMPS FEW /HPF (NONE SEEN)
[2016-11-22] MEDS: LACTATED RINGER'S 1,000 ML IV SCH ×3 (02:00→18:00)
[2016-11-22] MEDS: PIPER-TAZO 3.375 GM IV (PMX) 100 ML IVPB SCH ×3 (05:34→21:54)
[2016-11-22] MEDS: IBUPROFEN 800 MG TAB PO SCH ×3 (05:34→21:54)
[2016-11-22] MEDS: SENNA/DOCUSATE NA (8.6MG/50MG) TAB PO SCH ×2 (10:04→21:54)
--- NOTE | 2016-11-22 12:38 | PN ---
Date/Time of Note Date/Time of Note DATE: 11/22/16 TIME: 12:31 OB Subjective Subjective Subjective Resting in bed denies abdominal pain or discomfort incision seemed intact healing well she had normal bowel movement passing the abdomen not distended pelvic disc consistent with collection of fluid possible abscess measured 10 x 4.6 she is afebrile now spiked temperature yesterday to 101 no fever since 3:45 AM currently she is on Zosyn every 6 hours, her chest x-ray report normal we will continue antibiotic therapy considering to repeat pelvic scan tomorrow EULA SOTELO MD Nov 22, 2016 12:38
--- NOTE | 2016-11-22 13:53 | RADRPT ---
Vent Rate: 121 bpm RR Interval: 0 msec RI Interval: 158 msec QRS Duration: 72 msec QT Interval: 308 msec QTC Interval: 437 msec P-R-T [place]: 42 - 14 - 15 degrees Sinus tachycardia Otherwise normal ECG Electronically Signed By: Josh Jean-Baptiste [id number]
[2016-11-22 14:22] LABS: ABNORMAL IP MESSAGE 1; HEMATOCRIT 27.1 % (37.0-47.0); HEMOGLOBIN 8.5 g/dl (12.0-16.0); MEAN CORPUSCULAR HEMOGLOBIN 26.5 pg (29.0-33.0); MEAN CORPUSCULAR HGB CONC 31.4 g/dl (32.0-37.0); MEAN CORPUSCULAR VOLUME 84.4 fl (82.0-101.0); MEAN PLATELET VOLUME 9.9 fl (7.4-10.4); PLATELET COUNT 174 10^3/UL (140-415); RED BLOOD COUNT 3.21 10^6/ul (4.20-5.40); RED CELL DISTRIBUTION WIDTH 14.3 % (11.5-14.5); WHITE BLOOD COUNT 14.5 10^3/ul (4.8-10.8)
[2016-11-22] MEDS: OXYCODONE/ACETAMINOPHEN (5/325) TAB PO PRN (14:25)
[2016-11-22 14:32] LABS: POSITIVE DIFF @See below
[2016-11-22 16:03] LABS: LYMPHOCYTES # 0.3 10^3/ul (0.8-2.9); MONOCYTE # 0.3 10^3/ul (0.3-0.9); MONOCYTES % (M) 2 % (0-11); NEUTROPHIL # 12.6 10^3/ul (1.6-7.5)
[2016-11-23] VITALS: BP 128/73; PULSE 121; RESP 18
[2016-11-23] MEDS: OXYCODONE/ACETAMINOPHEN (5/325) TAB PO PRN ×2 (03:22→19:28)
[2016-11-23 04:00] VITALS: BP 123/69; PULSE 102; RESP 20
[2016-11-23] MEDS: IBUPROFEN 800 MG TAB PO SCH ×3 (05:33→21:31)
[2016-11-23] MEDS: PIPER-TAZO 3.375 GM IV (PMX) 100 ML IVPB SCH ×3 (05:33→22:17)
[2016-11-23 08:00] VITALS: BP 120/71; PULSE 97; RESP 18
[2016-11-23] MEDS: SENNA/DOCUSATE NA (8.6MG/50MG) TAB PO SCH ×2 (09:16→21:31)
[2016-11-23] MEDS: LACTATED RINGER'S 1,000 ML IV SCH ×3 (10:00→15:56)
--- NOTE | 2016-11-23 11:54 | PN ---
Date/Time of Note Date/Time of Note DATE: 11/23/16 TIME: 11:50 OB Subjective Subjective Subjective Date 3 post section Afebrile this morning spiked temperature to 101 last night at 12:00, her abdomen is soft incision is healing well no sign of hematomas abscess or induration, urine culture negative chest x-ray negative denies any pain or discomfort minimal incisional pain only, pelvic scan consistent with positive abscesses presently she is covered with Zosyn we will add gentamicin will continue expecting management until she become completely afebrile for 24 hour EULA SOTELO MD Nov 23, 2016 11:54
[2016-11-23 12:00] VITALS: BP 116/66; PULSE 101; RESP 17
[2016-11-23] MEDS ORDERED: GENTAMICIN 120 MG/NS (PMX) 100 ML IVPB SCH (13:00)
[2016-11-23] MEDS: GENTAMICIN 120 MG/NS (PMX) 100 ML IVPB SCH ×2 (15:04→21:31)
[2016-11-23 16:21] VITALS: BP 115/64; PULSE 94; RESP 18
[2016-11-23 20:00] VITALS: BP 140/81; PULSE 104; RESP 18
[2016-11-24] VITALS: BP 132/77; PULSE 101; RESP 18
[2016-11-24] MEDS: LACTATED RINGER'S 1,000 ML IV SCH ×3 (02:00→18:00)
[2016-11-24] MEDS: OXYCODONE/ACETAMINOPHEN (5/325) TAB PO PRN ×3 (03:37→20:23)
[2016-11-24 04:00] VITALS: BP 128/75; PULSE 95; RESP 18
[2016-11-24] MEDS: IBUPROFEN 800 MG TAB PO SCH ×3 (05:36→21:34)
[2016-11-24] MEDS: GENTAMICIN 120 MG/NS (PMX) 100 ML IVPB SCH ×3 (05:36→21:34)
[2016-11-24] MEDS: PIPER-TAZO 3.375 GM IV (PMX) 100 ML IVPB SCH ×3 (06:08→21:34)
[2016-11-24 08:00] VITALS: BP 128/69; PULSE 101; RESP 18
[2016-11-24] MEDS: SENNA/DOCUSATE NA (8.6MG/50MG) TAB PO SCH ×2 (08:58→20:22)
[2016-11-24] MEDS ORDERED: BARIUM SULF 2% 450 ML BTL (BERRY SMOOTHIE) PO ONE (10:30)
[2016-11-24 12:07] LABS: HEMATOCRIT 24.2 % (37.0-47.0); HEMOGLOBIN 7.7 g/dl (12.0-16.0); MEAN CORPUSCULAR HEMOGLOBIN 26.5 pg (29.0-33.0); MEAN CORPUSCULAR HGB CONC 31.8 g/dl (32.0-37.0); MEAN CORPUSCULAR VOLUME 83.2 fl (82.0-101.0); MEAN PLATELET VOLUME 9.4 fl (7.4-10.4); NUCLEATED RED BLOOD CELLS% 0.2 /100WBC (0.0-0.0); PLATELET COUNT 228 10^3/UL (140-415); POSITIVE DIFF @See below; RED BLOOD COUNT 2.91 10^6/ul (4.20-5.40); WHITE BLOOD COUNT 9.5 10^3/ul (4.8-10.8)
[2016-11-24 12:45] VITALS: BP 119/72; PULSE 97; RESP 20
--- NOTE | 2016-11-24 12:48 | RADRPT ---
Vent Rate: 109 bpm RR Interval: 0 msec [place] Interval: 166 msec QRS Duration: 70 msec QT Interval: 326 msec QTC Interval: 439 msec P-R-T [place]: 51 - 28 - 24 degrees Sinus tachycardia Otherwise normal ECG Electronically Signed By: Josh Jean-Baptiste [id number]
[2016-11-24 16:00] VITALS: BP 122/72; PULSE 91; RESP 20
[2016-11-24 16:29] LABS: EOSINOPHILS % (M) 1 % (0-7); GIANT THROMBO% (M) 1 % (0-0); MONOCYTES % (M) 6 % (0-11); PLATELET ESTIMATE NORMAL
[2016-11-24] MEDS ORDERED: IOHEXOL 300MG/ML 150 ML BTL ONE (17:05)
[2016-11-24] MEDS ORDERED: SOD CHLORIDE 0.9% 100 ML ONE (17:05)
[2016-11-24 20:25] VITALS: BP 130/85; PULSE 97; RESP 18
--- NOTE | 2016-11-24 20:31 | RADRPT ---
PROCEDURE: CT Abdomen and Pelvis with Contrast CLINICAL INDICATION: Pelvic abscess TECHNIQUE: Transaxial images were obtained through the abdomen and pelvis on a multi-slice scanner following the intravenous administration of 90 ml of Omnipaque-300 contrast. A second series was ob tained due to a leakage at the site of the IV which was not properly screwed in at the time of injec tion. Oral contrast had previously been given. Sagittal and coronal re-formations were subsequently reconstructed. One or more of the following dose reduction techniques were used: - Automated exposure control. - Adjustment of the mA and/or kV according to patient size. - Use of iterative reconstruction technique. Radiation dose: CTDIvol = 57.25 mGy; DLP = 3628.51 mGy-cm. COMPARISON: 11/21/2016 FINDINGS: Lung bases: Increasing discoid atelectasis are seen at both posterior sulci. There is been interval development of a small gravitating water density left pleural fluid accumulation and a trace of gra vitating right pleural fluid accumulation. Liver: The liver remains borderline enlarged with no focal lesion. Gallbladder: The wall is not thickened. No radiopaque stones are identified. Bile ducts: The intra and extrahepatic bile ducts are normal in caliber. Pancreas: Appears normal with no mass or inflammation evident. Spleen: The spleen is mildly enlarged. Adrenals: Normal with no mass identified. Kidneys, ureters and bladder: The kidneys enhance normally and are normal in size and there is no ma ss, pathological calcification, or hydronephrosis evident. There is no perinephric stranding. The ur eters are normal in caliber and no ureteroliths are identified. There is a decreased amount of air w ithin the bladder lumen.. Reproductive organs: The uterus remains enlarged measuring 16.9 cm in longitudinal diameter. There is persistent thickening of the endometrial cavity which appears less dense. No adnexal mass is evid ent. Stomach, bowel, and mesentery: The stomach and bowel appear unremarkable without evidence of obstruc tion or inflammation. Appendix: The vermiform appendix is not discretely identified. Peritoneum: There is increasing amount of free intraperitoneal fluid seen within the subphrenic spac es bilaterally and to a lesser extent within the pericolic gutters. No free air is identified. The re is a loculated fluid collection containing bubbles of air with wall enhancement seen anterior to the lower uterine segment extending more to the right of midline measuring 8.7 x 4.3 x 4.2 cm, sligh tly increased in size over the previous. Aorta: Normal in caliber with no aneurysmal dilatation. IVC: Unremarkable. The right renal vein courses posterior to the abdominal aorta. Lymph nodes: No pathologically enlarged nodes are identified. Osseous structures: The osseous elements appear intact. Soft tissues: There are bubbles of air within the right and left rectus musculature and persistent stranding within the pelvic subcutaneous fat anteriorly. IMPRESSION: 1. Since the previous CT of 11/21/2016, the intraperitoneal abscess seen anterior to the lower uter ine segment and superior to the bladder has slightly increased in size now measuring 8.7 x 4.3 x 4.2 cm. 2. There is again enlarged uterus with a thickened endometrial cavity which now appears less dense than seen previously. 3. Bubbles of air are seen within the pelvic anterior rectus musculature with stranding seen within the omentum and subcutaneous fat. 4. There is no evidence of bowel obstruction or inflammation. 5. There is no evidence of urinary outflow obstruction or ureterolithiasis. The ureters appear inta ct. There is a bubble of air seen within the lumen of the bladder which is decreased in size from t he previous. The bladder is only partially distended with contrast and no extravasation of contrast is evident. 6. Interval increase in the small amount of free intraperitoneal fluid primarily seen within the fuller bphrenic spaces and pericolic gutters. No free air is identified. 7. Development of a small water density gravitating left pleural fluid accumulation and a trace hanny unt of gravitating right pleural fluid accumulation with increasing discoid atelectatic change seen in the posterior sulci, greater on the left and the right. Physician Singh Date Time Electronically viewed and signed by Physician Singh on 11/24/2016 20:31 /
[2016-11-25] MEDS: OXYCODONE/ACETAMINOPHEN (5/325) TAB PO PRN ×3 (04:09→23:49)
[2016-11-25 04:10] VITALS: BP 123/78; PULSE 97; RESP 18
[2016-11-25] MEDS: IBUPROFEN 800 MG TAB PO SCH ×3 (05:42→22:29)
[2016-11-25] MEDS: PIPER-TAZO 3.375 GM IV (PMX) 100 ML IVPB SCH ×3 (05:44→22:29)
[2016-11-25] MEDS: GENTAMICIN 120 MG/NS (PMX) 100 ML IVPB SCH ×3 (06:47→21:15)
[2016-11-25 08:50] VITALS: BP 118/74; PULSE 101; RESP 21
[2016-11-25] MEDS: SENNA/DOCUSATE NA (8.6MG/50MG) TAB PO SCH ×2 (09:00→20:58)
[2016-11-25] MEDS: LACTATED RINGER'S 1,000 ML IV SCH ×3 (10:00→18:00)
--- NOTE | 2016-11-25 14:40 | PN ---
Date/Time of Note Date/Time of Note DATE: 11/25/16 TIME: 14:34 OB Subjective Subjective Subjective Afebrile Vital signs are stable Abdomen bowel sounds present patient had bowel movement Incision dry healing well Imaging report scan of pelvis abscess cavity still present, consider consultation with the radiologist for possible aspiration of the pelvic abscess EULA SOTELO MD Nov 25, 2016 14:39
[2016-11-25 16:35] VITALS: BP 122/78; PULSE 87; RESP 19
[2016-11-25 17:04] VITALS: BP 118/61; PULSE 88; RESP 18
[2016-11-25 20:30] VITALS: BP 126/72; PULSE 89; RESP 19
[2016-11-26] MEDS: LACTATED RINGER'S 1,000 ML IV SCH ×3 (02:00→17:07)
[2016-11-26 04:10] VITALS: BP 109/62; PULSE 77; RESP 17
[2016-11-26] MEDS: GENTAMICIN 120 MG/NS (PMX) 100 ML IVPB SCH ×2 (05:37→16:33)
[2016-11-26] MEDS: IBUPROFEN 800 MG TAB PO SCH ×3 (06:00→21:35)
[2016-11-26] MEDS: PIPER-TAZO 3.375 GM IV (PMX) 100 ML IVPB SCH ×3 (06:10→21:36)
[2016-11-26 08:00] VITALS: BP 121/74; PULSE 84; RESP 18
[2016-11-26] MEDS: SENNA/DOCUSATE NA (8.6MG/50MG) TAB PO SCH ×2 (09:00→21:00)
[2016-11-26] MEDS: OXYCODONE/ACETAMINOPHEN (5/325) TAB PO PRN ×2 (09:26→15:00)
[2016-11-26] MEDS ORDERED: MIDAZOLAM 1 MG/ML 2 ML INJ ONE (09:27)
[2016-11-26] MEDS ORDERED: LIDOCAINE 1% (MDV) 20 ML INJ ONE (09:27)
[2016-11-26] MEDS ORDERED: SOD CHLORIDE 0.9% 500 ML ONE (09:28)
[2016-11-26] MEDS ORDERED: FENTAnyl 50 MCG/ML VIAL ONE (09:28)
--- NOTE | 2016-11-26 09:58 | PN ---
Date/Time of Note Date/Time of Note DATE: 11/26/16 TIME: 09:48 OB Subjective Subjective Subjective Afebrile Vital signs are stable Abdomen soft incision healing well no sign of erythema or , bowel sounds present , had normal bowel movement, presence of pelvic abscesses confirmed with repeated CT scan, radiologist consulted for possible CT guided aspiration of the abscess, patient has consented for the procedure after it was explained to her in detail. EULA SOTELO MD Nov 26, 2016 09:58
--- NOTE | 2016-11-26 10:02 | QN ---
Documentation Comment Patient discharge is canceled due to pelvic abscess which requiring further evaluation and treatment, plan of CT-guided aspiration of the abscess discussed and explained to the patient EULA SOTELO MD Nov 26, 2016 10:02
--- NOTE | 2016-11-26 12:18 | RADRPT ---
PROCEDURE: CT guided pelvic abscess drainage. CLINICAL INDICATION: Pelvic abscess. Pelvic pain. Postop. TECHNIQUE: Informed consent was obtained. The procedure, risks, benefits, complications and alternatives were explained to the patient. Risks including bleeding and infection were explained. The patient underst ood and was willing to proceed. A procedural pause was performed. The patient's name, date of , and procedure to be performed were verified. One or more of the following dose reduction techniq ues were used: Automated exposure control, adjustment of the mA and/or kV according to patient size, use of iterative reconstruction technique. Using local anesthetic, sterile technique and CT guidance, a 19-gauge Yueh needle was advanced into the fluid collection in the anterior pelvis midline. CT scan was performed confirming position. Pu rulent fluid was also aspirated confirming position. The needle from the Yueh catheter was removed, leaving the Yueh catheter in place within the fluid collection. A 0.035-inch Amplatz guidewire was advanced through the Yueh catheter into the fluid collection. The Yueh catheter was removed. The tract was dilated to 8-Spanish. An 8.5 Spanish multipurpose drainage catheter was advanced over the g uidewire into the fluid collection. The guidewire was removed. Additional scanning was performed c onfirming position. The catheter was then sutured to the patient's skin with 2-0 silk. Approximate ly 70 ml of purulent fluid was aspirated. The catheter was connected to a drainage bag. A dressing was applied. The patient tolerated procedure well. COMPARISON: None. FINDINGS: Final images demonstrate the drainage catheter in satisfactory position within the pelvic abscess. IMPRESSION: 1. Successful CT guided pelvic abscess drainage. RPTAT: QQ .Joshua Chavez MD, Date Time Electronically viewed and signed by .Joshua Chavez MD, MD on 11/26/2016 12:17 .R/
[2016-11-26 13:30] VITALS: BP 133/88; PULSE 85; RESP 19
[2016-11-26 16:00] VITALS: BP 126/70; RESP 19
[2016-11-26 19:40] VITALS: BP 124/76; PULSE 82; RESP 20
[2016-11-27] MEDS: GENTAMICIN 120 MG/NS (PMX) 100 ML IVPB SCH ×4 (00:03→21:38)
[2016-11-27 04:00] VITALS: BP 122/73; PULSE 82; RESP 19
[2016-11-27] MEDS: IBUPROFEN 800 MG TAB PO SCH ×3 (05:49→21:36)
[2016-11-27] MEDS: PIPER-TAZO 3.375 GM IV (PMX) 100 ML IVPB SCH ×3 (05:50→22:00)
[2016-11-27 07:40] VITALS: BP 116/71; PULSE 82; RESP 20
[2016-11-27] MEDS: SENNA/DOCUSATE NA (8.6MG/50MG) TAB PO SCH ×2 (10:25→21:00)
[2016-11-27] MEDS: OXYCODONE/ACETAMINOPHEN (5/325) TAB PO PRN (12:52)
[2016-11-27 16:03] VITALS: BP 119/70; RESP 20
[2016-11-27 20:00] VITALS: BP 106/58; PULSE 90; RESP 18
[2016-11-28 04:20] VITALS: BP 128/78; PULSE 70; RESP 18
[2016-11-28] MEDS: GENTAMICIN 120 MG/NS (PMX) 100 ML IVPB SCH ×3 (05:46→21:35)
[2016-11-28] MEDS: IBUPROFEN 800 MG TAB PO SCH ×3 (05:46→21:34)
[2016-11-28] MEDS: PIPER-TAZO 3.375 GM IV (PMX) 100 ML IVPB SCH ×3 (07:12→21:35)
[2016-11-28 07:40] VITALS: BP 113/70; RESP 20
[2016-11-28 09:14] LABS: ABNORMAL IP MESSAGE 1; BASOPHIL # 0.1 10^3/ul (0.0-0.1); BASOPHILS % 0.7 % (0.0-2.0); EOSINOPHILS # 0.2 10^3/ul (0.0-0.5); EOSINOPHILS % 1.7 % (0.0-7.0); HEMATOCRIT 25.3 % (37.0-47.0); LYMPHOCYTES # 1.5 10^3/ul (0.8-2.9); LYMPHOCYTES % 17.5 % (15.0-51.0); MEAN CORPUSCULAR HEMOGLOBIN 26.7 pg (29.0-33.0); MEAN CORPUSCULAR HGB CONC 31.6 g/dl (32.0-37.0); MEAN CORPUSCULAR VOLUME 84.3 fl (82.0-101.0); MEAN PLATELET VOLUME 9.1 fl (7.4-10.4); MONOCYTE # 0.5 10^3/ul (0.3-0.9); MONOCYTES % 6.3 % (0.0-11.0); NEUTROPHILS % 65.3 % (39.0-77.0); NUCLEATED RED BLOOD CELLS% 0.5 /100WBC (0.0-0.0); PLATELET COUNT 260 10^3/UL (140-415); WHITE BLOOD COUNT 8.6 10^3/ul (4.8-10.8)
[2016-11-28 09:16] LABS: POSITIVE DIFF @See below
[2016-11-28] MEDS: OXYCODONE/ACETAMINOPHEN (5/325) TAB PO PRN (09:39)
[2016-11-28] MEDS: SENNA/DOCUSATE NA (8.6MG/50MG) TAB PO SCH ×2 (09:39→21:34)
[2016-11-28 09:42] LABS: CREATININE 0.8 mg/dl (0.44-1.00)
[2016-11-28 11:48] VITALS: BP 123/74; PULSE 77; RESP 20
[2016-11-28 16:51] VITALS: BP 125/68; PULSE 77; RESP 17
[2016-11-28 20:00] VITALS: BP 116/69; PULSE 76; RESP 20
[2016-11-29] VITALS: BP 109/63; PULSE 66; RESP 18
[2016-11-29 04:00] VITALS: BP 134/79; PULSE 62; RESP 20
[2016-11-29] MEDS: IBUPROFEN 800 MG TAB PO SCH ×4 (06:23→15:00)
[2016-11-29] MEDS: GENTAMICIN 120 MG/NS (PMX) 100 ML IVPB SCH ×2 (06:23→06:25)
[2016-11-29] MEDS: PIPER-TAZO 3.375 GM IV (PMX) 100 ML IVPB SCH (06:41)
[2016-11-29 07:24] LABS: ABNORMAL IP MESSAGE 1; HEMATOCRIT 26.2 % (37.0-47.0); HEMOGLOBIN 8.1 g/dl (12.0-16.0); MEAN CORPUSCULAR HGB CONC 30.9 g/dl (32.0-37.0); MEAN PLATELET VOLUME 9.5 fl (7.4-10.4); NUCLEATED RED BLOOD CELLS% 0.4 /100WBC (0.0-0.0); PLATELET COUNT 264 10^3/UL (140-415); RED BLOOD COUNT 3.12 10^6/ul (4.20-5.40); RED CELL DISTRIBUTION WIDTH 14.2 % (11.5-14.5)
[2016-11-29] MEDS: SENNA/DOCUSATE NA (8.6MG/50MG) TAB PO SCH (09:00)
[2016-11-29 11:42] LABS: EOSINOPHILS # 0.4 10^3/ul (0.0-0.5); EOSINOPHILS % (M) 5 % (0.0-7.0); LYMPHOCYTES # 1.3 10^3/ul (0.8-2.9); METAMYELOCYTES %M 1 % (0-0); MONOCYTE # 0.2 10^3/ul (0.3-0.9); MONOCYTES % (M) 2 % (0-11); MYELOCYTES % (M) 1 % (0-0)
[2016-11-29 11:44] LABS: POLYCHROMASIA 1+ (0-0)
--- NOTE | 2016-11-29 12:50 | RADRPT ---
PROCEDURE: CT abdomen and pelvis without contrast. CLINICAL INDICATION: Abscess TECHNIQUE: CT scan of the abdomen and pelvis without contrast was performed and is reconstructed a t 2.5 mm contiguous axial intervals from the dome of the diaphragm to the inferior pubic rami.. The patient was scanned without intravenous contrast. Sagittal and coronal reformatted images were obt ained from the axial source images. The calculated radiation dose measures 1346 mGy centimeters. The CTDI measures 22 mGy. COMPARISON: No CT abdomen pelvis November 24 FINDINGS: The lung bases are clear of any infiltrate or nodule. No effusion is seen. The liver is of normal size, contour and attenuation with no mass or ductal dilatation. No gallston es are visualized. No splenic, adrenal or pancreatic abnormalities present. Kidneys are of normal size and contour. No hydronephrosis, calculus or masses seen. Ureters are o f normal course and caliber with no stone. No bladder mass or stone is present. Uterus and ovaries appear normal. There is no aneurysm. No adenopathy is present. There has been interval insertion of a percutaneo us drain into of previously noted right anterior lower pelvic abscess. There has been near complete evacuation of the abscess in the interim. Minimal stranding is seen in the anterior pelvic fat wit hin the space of Retzius. No bowel mass or obstruction is present. The appendix is normal. No phlegmon, ascites or pneumop eritoneum is visualized. The osseous structures are intact. IMPRESSION: Near complete evacuation of previously noted pelvic abscess following percutaneous drainage. .Wallace Davila MD, MD Date Time Electronically viewed and signed by .Wallace Davila MD, MD on 11/29/2016 12:50 .A/
[2016-11-29] MEDS ORDERED: GENTAMICIN 100 MG/50 ML NS IVPB SCH (14:00)
[2016-11-29 16:00] VITALS: BP 121/71; PULSE 87; RESP 18
--- NOTE | 2016-11-29 16:12 | QN ---
Documentation Comment S/P primary C/S LEROY drain was placed secondary to post-operative abscess Patient stable and afebrile LEROY drain was removed without any complications Prescription for Motrin and Bactrim was given Patient was instructed to follow-up with Dr. Blackburn in 2-3 days MANINDER WHITTAKER MD Nov 29, 2016 16:12
== END 2016-11-29 18:40 | disposition home or self-care (01) | DRG 765 ==
LOC: OBT 08:12 → L-D 08:12 → OBT 10:00 → L-D 11-18 01:30 → PP1 11-18 06:32
PROVIDERS: ADMIT Obstetrics & Gynecology; ATTEND Obstetrics & Gynecology
PROC: 10D00Z1 Extraction of Products of Conception, Low, Open Approach (ICD-10-PCS; principal; 2016-11-18)
PROC: 0W9J30Z Drainage of Pelvic Cavity with Drainage Device, Percutaneous Approach (ICD-10-PCS; 2016-11-26)
DX: O32.4XX0 Maternal care for high head at term, not applicable or unspecified (principal); O85 Puerperal sepsis; O86.4 Pyrexia of unknown origin following delivery; Z37.0 Single live birth; Z3A.40 40 weeks gestation of pregnancy
CPT/HCPCS: 62319; 71020; 74176; 74177; 75989; 76815; 76818; 77012; 80170; 80307; 81001; 82565; 84112; 84520; 85025; 85610; 85730; 86592; 86900; 86901; 87040; 87070; 87075; 87086; 87340; 90715; 93005; 94760; 99464; G0463; J0290; J0595; J0690; J1580; J1885; J2210; J2250; J2274; J2405; J2543; J2590; J3010; J7040; J7120; J7121; Q9967